=== PATIENT | female | born 1975 | race Caucasian/White ===

== ENCOUNTER → 2022-01-04 | Outpatient (CLI) | payer BC | LOC: LAB 14:24 | DX: J02.9 Acute pharyngitis, unspecified (principal); B34.9 Viral infection, unspecified; Z20.822 Contact with and (suspected) exposure to COVID-19 | CPT/HCPCS: U0002 ==

== ENCOUNTER → 2022-01-05 | Outpatient (CLI) | payer BC | LOC: LAB 10:21 | DX: U07.1 COVID-19 (principal); R05.9 Cough, unspecified; R51.9 Headache, unspecified | CPT/HCPCS: U0002 ==

== ENCOUNTER → 2022-01-05 | Outpatient (CLI) | payer BC ==
[~2022-01-05] VITALS: Ht 157.5 cm; Wt 62.6 kg
== END ==
LOC: EROP 12:55
DX: U07.1 COVID-19 (principal)
CPT/HCPCS: M0222; Q0222